=== PATIENT | female | born 1960 | race Caucasian/White ===

== ENCOUNTER 2019-09-03 02:45 | Emergency (ER) | payer OTHER ==
[2019-09-03 02:54] VITALS: BP 157/98; PULSE 78; TEMP 98; BMI 28.1
[2019-09-03] MEDS ORDERED: KETOROLAC TROMETHAMINE 30 MG/1 ML VIAL IVPUSH ONE (02:59)
[2019-09-03] MEDS ORDERED: ONDANSETRON 4 MG/2 ML VIAL IVPUSH ONE (02:59)
[2019-09-03] MEDS ORDERED: SODIUM CHLORIDE 1,000 ML IV STA (02:59)
[2019-09-03] MEDS ORDERED: FAMOTIDINE 20 MG/50 ML IVPB 20 MG/50 ML MG IVPB ONE ×2 (03:00→03:03)
--- NOTE | 2019-09-03 03:00 | PDOC ---
History of Present Illness - General Chief Complaint: Pain, Acute Stated Complaint: ABD PAIN Time Seen by Provider: 09/03/19 02:47 - History of Present Illness Initial Comments: 09/03/19 03:01 This 58-year-old woman with a history of HTN/HLD presents with 3-day history of intermittent epigastric/periumbilical pain that has become steady in the last 24 hours. Pain has been accompanied by nausea and intermittent vomiting ( initially partially digested food; most recently just prior to presentation bilious/mucus). No blood/coffee ground emesis. Last ate solid food (small amount of dumplings) about 12 hours prior to presentation. No fever/chills. Patient has been having soft, non-watery bowel movements. No previous history of peptic ulcer disease/gastritis/gallbladder problems/pancreatic abnormalities. No history of diverticulitis or other colonic abnormalities. Patient had colonoscopy within the last few years which was reportedly normal Patient denies chest pain/shortness of breath/cough/palpitations Patient has been taking her medications as prescribed. PSH: PMD: Dr. Antoine No known allergies Non-smoker; no daily alcohol or other recreational drugs Past History - Past Medical History Allergies/Adverse Reactions: Allergies Allergy/AdvReac Type Severity Reaction Status Date / Time No Known Allergies Allergy Unverified 01/17/13 21:44 Home Medications: Ambulatory Orders Ondansetron [Zofran *Odt*] 4 mg SL BID PRN #10 od.tablet 09/03/19 COPD: No HTN: Yes Hypercholesterolemia: Yes - Psycho Social/Smoking Cessation Hx Smoking History: Never smoked Review of Systems - Review of Systems Able to Perform ROS?: Yes Comments:: 12 point review of systems is negative except for what is noted in the history of present illness *Physical Exam - Vital Signs Last Vital Signs Temp Pulse Resp BP Pulse Ox 98 F 78 20 157/98 100 09/03/19 02:48 09/03/19 02:48 09/03/19 02:48 09/03/19 02:48 09/03/19 02:48 - Physical Exam GENERAL: Adult female, alert and oriented x3, in moderate distress secondary nausea/periumbilical abdominal pain HEAD: Normal with no signs of trauma. EYES: PERRLA, EOMI, sclera anicteric, conjunctiva clear. ENT: Ears normal, nares patent, oropharynx clear without exudates. Dry mucous membranes. NECK: Normal range of motion, supple without lymphadenopathy, JVD, or masses. LUNGS: Breath sounds equal, clear to auscultation bilaterally. No wheezes, and no crackles. HEART:Regular rate and rhythm, normal S1 and S2 without murmur, rub or gallop. ABDOMEN:.normal bowel sounds. Moderate tenderness to palpation epigastrium/ upper periumbilical area. No guarding or rebound.No masses No distention. No Bailey's sign EXTREMITIES: Normal range of motion, no edema. No clubbing or cyanosis. No erythema, or tenderness. NEUROLOGICAL: Cranial nerves II through XII grossly intact. Normal speech. No focal neurological deficits. SKIN: Warm, Dry, normal turgor, no rashes or lesions noted. ED Treatment Course - LABORATORY CBC & Chemistry Diagram: 09/03/19 03:10 09/03/19 03:10 Medical Decision Making - Medical Decision Making 09/03/19 03:20 58-year-old woman with a history of HTN/HLD but no significant prior gastrointestinal issues presents with 3 days of intermittent epigastric/ periumbilical pain and nausea that has become progressively worse over the last 24 hours. Exam as noted with moderate tenderness epigastrium/superior periumbilical area; no rebound or involuntary guarding present. Soon after presentation, patient vomited small to moderate amount of bilious emesis with mucus which resulted in significant relief in her nausea; she continued to have pain in epigastrium/periumbilical area. CBC/chemistry profile/lipase/troponin sent. 1 Liter normal saline IV hydration started with 4 mg Zofran IV/20 mg Pepcid IV/30 mg Toradol IV administered. Differential diagnosis includes but is not limited to acute gastritis/peptic ulcer disease/gastroenteritis/acute pancreatitis/early small bowel obstruction 09/03/19 04:38 Patient felt markedly better after IV hydration and medications. Laboratory evaluation generally unremarkable except for minimal hypokalemia(3.4 ) and moderate elevation of random glucose (160). WBC is normal as is lipase of 131 Repeat abdominal examination revealed decrease in epigastric/periumbilical tenderness; no rebound/guarding is present. No other tenderness or other abnormalities on exam. Clinical presentation most consistent with acute gastroenteritis Patient will be discharged with instructions to maintain clear liquid diet with very cautious advancement to solid foods. Prescription for Zofran ODT 4 mg up to twice a day for nausea will be sent to her pharmacy. She should return to the ER if she has recurrence of pain, persistent vomiting or development of fever. She should plan on following up with Dr. Antoine within the next 3 to 4 days Discharge - Discharge Information Problems reviewed: Yes Clinical Impression/Diagnosis: Gastroenteritis Condition: Stable Disposition: HOME - Additional Discharge Information Prescriptions: Ondansetron [Zofran *Odt*] 4 mg SL BID PRN #10 od.tablet PRN Reason: Nausea - Follow up/Referral Referrals: Jose Antoine MD [Primary Care Provider] - - Patient Discharge Instructions Patient Printed Discharge Instructions: DI for Viral Gastroenteritis -- Adult Additional Instructions: Clear liquids; advance diet cautiously Zofran ODT 4 mg up to twice a day as needed for nausea Return to ER if you have recurrence of severe pain or persistent vomiting Follow-up with Dr. Antoine within the next 3 to 4 days - Post Discharge Activity
[2019-09-03] MEDS ORDERED: ONDANSETRON 4 MG/2 ML VIAL ONE (03:03)
[2019-09-03] MEDS ORDERED: KETOROLAC TROMETHAMINE 30 MG/1 ML VIAL ONE (03:03)
[2019-09-03 03:44] LABS: BASO % 0.3 % (0-2.0); EOS % 0.8 % (0-4.5); HEMATOCRIT 46.8 % (32.4-45.2); HEMOGLOBIN 15.6 GM/dL (10.7-15.3); LYMPH % 20.5 % (8-40); MCH 28.7 pg (25.7-33.7); MCHC 33.4 g/dl (32.0-36.0); NEUT % 67.4 % (42.8-82.8); PLATELET COUNT 269 K/MM3 (134-434); RBC 5.44 M/mm3 (3.60-5.2); RDW 12.9 % (11.6-15.6); WHITE BLOOD COUNT 8.8 K/mm3 (4.0-10.0)
[2019-09-03 04:24] LABS: ALBUMIN 4.2 g/dl (3.4-5.0); ALK PHOS 71 U/L (45-117); ANION GAP 12 MMOL/L (8-16); BILIRUBIN,TOTAL 0.9 mg/dL (0.2-1); BLOOD UREA NITROGEN 13.3 mg/dL (7-18); CALCIUM 10.1 mg/dL (8.5-10.1); CHLORIDE 100 mmol/L (98-107); CO2 25 mmol/L (21-32); CREATININE 1.1 mg/dL (0.55-1.3); GLUCOSE,RANDOM 162 mg/dL (74-106); POTASSIUM 3.4 mmol/L (3.5-5.1); SGOT/AST 17 U/L (15-37); SGPT/ALT 24 U/L (13-61); SODIUM 136 mmol/L (136-145)
== END 2019-09-03 04:38 | disposition home or self-care (01) ==
LOC: FER 02:45
PROC: 3E033GC Introduction of Other Therapeutic Substance into Peripheral Vein, Percutaneous Approach (ICD-10-PCS; principal; 2019-09-03)
PROC: 3E0333Z Introduction of Anti-inflammatory into Peripheral Vein, Percutaneous Approach (ICD-10-PCS; 2019-09-03)
PROC: 3E033GC Introduction of Other Therapeutic Substance into Peripheral Vein, Percutaneous Approach (ICD-10-PCS; 2019-09-03)
DX: K52.9 Noninfective gastroenteritis and colitis, unspecified (principal); I10 Essential (primary) hypertension; E78.5 Hyperlipidemia, unspecified
CPT/HCPCS: 36415; 80053; 82550; 83690; 84484; 85025; 99283-25; J7030